=== PATIENT | female | born 1965 | race Caucasian/White ===

== ENCOUNTER → 2016-12-01 | Outpatient (CLI) | payer BC ==
[~2016-12-01] MED LIST: BYETTA10 MCG/0.0 INJ; CLEOCIN PO; INVOKAMET 150-1 EACH PO; JANUVIA50 MG PO; LISINOPRIL PO; METAGLIP 5/5001 TAB PO; NEURONTIN PO; SYNTHROID PO; VICODIN 5/500 T1 TAB PO
== END | disposition home or self-care (01) ==
LOC: CSSDAY 09:12
DX: L03.031 Cellulitis of right toe (principal)
CPT/HCPCS: 96365; 96366; J1200; J2407; J7060